=== PATIENT | female | born 1940 | race Caucasian/White ===

== ENCOUNTER 2019-03-06 09:52 | Inpatient (IN) | payer MEDICARE, OTHER ==
[~2019-03-06] VITALS: Ht 152.4 cm; Wt 61.5 kg
[~2019-03-06 09:52] MED LIST: ACETAMINOPHEN325 M1 PO; ADULT LOW DOSE81 MG PO; BAYER CHEWABLE81 MG PO; CALTRATE; FISH OIL; FISH OIL 1,0001 EAC8 PO; GINKGO BILOBA120 M1 PO; LOPRESSOR 50 MG50 M1 PO; LOPRESSOR25 PO; MILK OF MA400 MG/5 M PO; OSTEO BI-FLEX1 EAC1 PO; PROGESTERONE200 MG PO; PROPAFENONE 15150 MG PO; PROPAFENONE 22225 M1 PO; STRESS B WITH1 EAC2 PO; TOPROL XL25 MG PO; VESICARE 5 MG TA5 M1 PO; VITAMIN D31000 UNI2 PO; VIVELLE-DOT1 EAC1 TRANSDERM; [UNRECOGNIZED DRUG - OTHER]
[2019-03-06 11:45] VITALS: BP 128/68
--- NOTE | 2019-03-06 15:18 | NUR ---
PT DIRECTLY ADMITTED FROM HOME. PT IS AOX4 PLEASANT. ACCOMPANIED BY . ON RA. 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 PT UP WITH A CANE, FALL PRECAUTION IN PLACE. MEDICATION RECONCILIATION DONE. SEE CHART. PT STARTED ON HOME MED. ATE HEART HEALTHY LUNCH. NO COMPLAINT. WILL CONTINUE TO MONITOR PT
[2019-03-06 15:33] VITALS: BP 94/48
--- NOTE | 2019-03-06 16:48 | NUR ---
SPOKE WITH DR SILVERIO WHO IS SEEING PT DURING THIS HOSPITAL STAY. WAS ORDERED TO MAKE SURE PT GETS BOTH SOTALOL DOSES TODAY ORDERED. FIRST DOSE OF SOTALOL WAS GIVEN. SECOND DOSE TO BE GIVEN TONIGHT SCHEDULED. SOME MEDICATIONS WERE ALREADY GIVEN TO PATIENT AND ARE CHARTED NOT GIVEN ON EMAR. PT HAS NO COMPLAINT. ADMISSION HX AND ASSESSMENT PERFORMED. PT INSTRUCTED TO USE THE CALL LIGHT WHICH IS AT REACH. IN ROOM IS VERY SUPPORTIVE. WILL CONTINUE TO MONITOR PT
[2019-03-06 20:00] VITALS: BP 110/69
[2019-03-07] VITALS: BP 101/50
[2019-03-07 04:00] VITALS: BP 103/75
--- NOTE | 2019-03-07 05:58 | NUR ---
PATIENT SLEPT MOST OF THE NIGHT. IV REMAINS SALINE LOCKED. PATIENT WAS GIVE TYLENOL ONCE FOR A HEADACHE. HR HAS REMAINED SR ON THE MONITOR. WILL CONTINUE TO MONITOR.
[2019-03-07 08:00] VITALS: BP 111/64
[2019-03-07 09:52] VITALS: BP 103/75
[2019-03-07] MEDS ORDERED: ELIQUIS5 MG PO (10:00)
[2019-03-07] MEDS ORDERED: SORINE 80 MG TA80 M1 PO (10:08)
[2019-03-07 11:37] VITALS: BP 103/75
--- NOTE | 2019-03-07 11:43 | NUR ---
ASSUMED PT CARE REPORT RECEIVED FROM NURSE. 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 PT TOOK A SHOWER THIS AM. AMBULATES WITH ASSISTANCE AND A CANE. PT DISCHARGE PENDING. DISCHARGE INSTRUCTION GIVEN. PT LEFT AT 1145 ACCOMPANIED BY VOLUNTEER AND . BELONGINGS BROUGHT ALONG.
--- NOTE | 2019-03-07 15:43 | EKG ---
[place] [address] ELECTROCARDIOGRAM REPORT Name: ANMOL [facility] Darren Room: [address] [place] .R.#: [id number] Admission: 03/06/19 Attend Phys: Esau Rodriguez MD, Discharge: 03/07/19 Date of : 40 Report #: [id number] THIS REPORT FOR: //name// [facility] Test Date: 2019-03-07 Test Time: 08:07:09 Pat Name: SONIA MC Department: Room: [address] Gender: F Dietary Tech: : 1940 Requested By: Esau Rodriguez Order Number: [id number] Reading MD: Elton Livingston Measurements Intervals [place] Rate: 54 P: 46 MS: 145 QRS: -17 QRSD: 86 T: 65 QT: 437 QTc: 415 Interpretive Statements Sinus rhythm Left atrial enlargement Borderline left axis deviation Probable anteroseptal infarct, old No previous ECG available for comparison Electronically Signed On 03-07-2019 15:43:41 CDT by Elton Livingston [email or web address] <ELECTRONICALLY SIGNED> By: Elton Livingston MD, [facility] 03/07/19 1543 [id number] Elton Livingston MD, [facility] /EPI
--- NOTE | 2019-03-07 16:13 | D ---
[address] [address] DISCHARGE SUMMARY Name: ANMOL MCJoselo Banks Room: [address] M.R.#: [id number] Admission: 03/06/19 Attend Phys: Esau Rodriguez MD, Discharge: 03/07/19 Date of : 40 Report #: [id number] THIS REPORT FOR: //name// CC: Esau Haji [place] DATE OF SERVICE: 03/07/2019 FINAL DISCHARGE DIAGNOSES: 1. Paroxysmal atrial fibrillation/flutter. 2. Hypotension. 3. Mitral regurgitation. The patient is a pleasant 78-year-old female with a history of paroxysmal atrial fibrillation and flutter. Most recently, she demonstrated flutter with variable block. There has been increased breakthrough on her type 1C antiarrhythmic agent, and I elected to hospitalize her and change her to sotalol. The propafenone was discontinued and the patient was placed on sotalol 80 mg twice a day. There was pharmacal reversion in the context to a sinus mechanism, in which she remained during the hospitalization with the EKG on the morning of 03/07 demonstrating sinus rhythm and a mildly bradycardic rate with a normal QT interval. She was continued on oral anticoagulation with Eliquis and aspirin. She did well in the hospital and was discharged to home on sotalol 80 mg twice a day, Eliquis 5 mg twice a day, fish oil 1000 mg daily, and aspirin 81 mg daily. We will plan to see her in the office later this week for an EKG to assess her QT interval in the context of newly added sotalol therapy. I will plan to see her in approximately 6 weeks for clinical followup. Thus, the patient is discharged to home in stable condition on the above described medications with followup as iterated above. <ELECTRONICALLY SIGNED> By: Esau Rodriguez MD, [facility] 03/07/19 1613 [id number] Rodriguez MD, [facility] /nt
== END 2019-03-07 11:51 | disposition home or self-care (01) | DRG 309 ==
LOC: M.2W 09:52
PROVIDERS: ADMIT Internal Medicine
DX: I48.0 Paroxysmal atrial fibrillation (principal); D68.69 Other thrombophilia; I95.9 Hypotension, unspecified; I10 Essential (primary) hypertension; Z96.659 Presence of unspecified artificial knee joint; I25.10 Atherosclerotic heart disease of native coronary artery without angina pectoris; I08.3 Combined rheumatic disorders of mitral, aortic and tricuspid valves; Z79.01 Long term (current) use of anticoagulants; Z82.49 Family history of ischemic heart disease and other diseases of the circulatory system; Z82.3 Family history of stroke; Z79.82 Long term (current) use of aspirin